=== PATIENT | female | born 1970 | race Caucasian/White ===

== ENCOUNTER 2024-05-27 08:14 | Day surgery (SDC) | payer BC ==
[~2024-05-27] VITALS: Ht 165.1 cm; Wt 62.9 kg
[~2024-05-27 08:14] MED LIST: Lactated Ringer's 1,000 ML IV ONE; propofoL 50 ML IV ONE
[2024-05-27] MEDS ORDERED: IBUP200 PO (08:36)
[2024-05-27] MEDS ORDERED: CYCL10 PO (08:36)
[2024-05-27] MEDS ORDERED: Premarin0.3 MG (08:37)
[2024-05-27] MEDS ORDERED: Lactated Ringer's 1,000 ML IV ONE (09:22)
== END 2024-05-27 10:43 | disposition home or self-care (01) ==
LOC: ORSCSDS 08:14
PROVIDERS: Internal Medicine Gastroenterology
PROC: 0DBN8ZX Excision of Sigmoid Colon, Via Natural or Artificial Opening Endoscopic, Diagnostic (ICD-10-PCS; principal; 2024-05-27 09:15)
PROC: 0DB68ZX Excision of Stomach, Via Natural or Artificial Opening Endoscopic, Diagnostic (ICD-10-PCS; principal; 2024-05-27 09:15)
DX: R10.13 Epigastric pain (principal); K31.A12 Gastric intestinal metaplasia without dysplasia, involving the body (corpus); K21.9 Gastro-esophageal reflux disease without esophagitis; R10.32 Left lower quadrant pain; K63.5 Polyp of colon; E78.5 Hyperlipidemia, unspecified; Z80.0 Family history of malignant neoplasm of digestive organs; Z79.899 Other long term (current) drug therapy
CPT/HCPCS: 88305; J2704; J7120